=== PATIENT | female | born 1970 | race Caucasian/White ===

== ENCOUNTER 2016-09-07 04:45 | Observation (INO) | payer OTHER ==
[2016-08-28 10:46] LABS: BASOPHILS 0.6 %; BASOPHILS ABSOLUTE 0.04 10/3/uL (0.0-0.16); EOSINOPHILS 5.2 %; EOSINOPHILS ABSOLUTE 0.33 10/3/uL (0.0-0.53); HEMATOCRIT 39.6 % (36.0-48.0); HEMOGLOBIN 12.4 g/dL (12.0-16.0); IMMATURE GRANULOCYTES 0.5 %; IMMATURE GRANULOCYTES ABSOLUTE 0.03 10/3/uL (0.0-0.11); LYMPHOCYTES 20.4 %; MEAN PLATELET VOLUME 10.1 fL (9.2-13.0); MONOCYTES 8.8 %; MONOCYTES ABSOLUTE 0.56 10/3/uL (0.21-1.20); NEUTROPHILS 64.5 %; NEUTROPHILS ABSOLUTE 4.11 10/3/uL (2.02-8.40); RED CELL COUNT 4.23 10/6/uL (4.0-5.6); WHITE BLOOD CELLS 6.4 10/3/uL (4.5-10.5)
[2016-08-28 10:51] LABS: MANUAL DIFF NO %; MEAN CORPUS HGB CONC 31.3 g/dL (32.0-36.0); MEAN CORPUSCULAR HEMOGLOB 29.3 pg (26.0-34.0); MEAN CORPUSCULAR VOLUME 93.6 fL (80-100); PLATELET COUNT 293 10/3/uL (150-400); RBC DISTRIBUTION WIDTH 16.3 % (12.0-16.0)
[2016-08-28 10:52] LABS: PARTIAL THROMBO TIME 26.9 SEC (22.5-37.2); PROTIME (NOT ORD) 12.8 SEC (12.0-14.5)
[2016-08-28 10:56] LABS: ALBUMIN 3.1 G/DL (3.5-5.0); ALKALINE PHOSPHATASE 134 U/L (45-117); BUN (BLOOD UREA NITROGEN) 12 MG/DL (6-23); CALCIUM, SERUM 8.4 MG/DL (8.5-10.4); CHLORIDE, SERUM 110 MMOL/L (96-112); CO2 (CARBON DIOXIDE) 28 MMOL/L (24-34); CREATININE 0.87 MG/DL (0.55-1.02); GFR AFRICAN AMERICAN 93 ML/MIN (>=60); GFR NON AFRICAN AMERICAN 80 ML/MIN (>=60); GLOBULIN 3.2 G/DL (2.5-4.1); GLUCOSE, SERUM 81 MG/DL (60-99); POTASSIUM, SERUM 4.1 MMOL/L (3.5-5.3); SGOT(AST) 21 U/L (5-40); SGPT(ALT) 15 U/L (5-65); SODIUM, SERUM 144 MMOL/L (135-148); TOTAL BILIRUBIN 0.1 MG/DL (0-1.2); TOTAL PROTEIN 6.3 G/DL (6.0-8.5)
[2016-08-28 11:01] LABS: ASCORBIC ACID (UR NOT ORDER) NEG (NEG); BILIRUBIN, URINE NEGATIVE (NEG); KETONE, URINE NEGATIVE (NEG); LEUKOCYTE ESTERASE(NOT OR SMALL (NEG); WBC (NOT ORDERED) (RFLEX) 16 (0-5)
--- NOTE | ~2016-09-07 | OP ---
Record Of Operation [facility] [address] [place]. [address] NAME: JASPER WEBER : 70 STATUS : ADM IN PAT#: [id number] AGE: 46 ADM/REG DATE : 09/07/16 MR#: [id number] REPORT SERV DATE: 09/07/16 DICTATED BY: KEYON FERNANDEZ DATE: 09/07/16 REPORT STATUS : Draft TRANSCRIBED BY: MODL DATE: 09/07/16 DATE OF PROCEDURE: 09/07/2016 PREOPERATIVE DIAGNOSIS: Left early shoulder osteoarthritis. POSTOPERATIVE DIAGNOSIS: Left early shoulder osteoarthritis. PROCEDURE: Left total shoulder arthroplasty. SURGEON: Keyon Fernandez M.D. COMPLICATIONS: None. ANESTHESIA: General endotracheal with regional block. IMPLANTS: [employer] press-fit stem and hybrid glenoid. INDICATIONS: This 46-year-old female is well known to me. She had arthroscopic procedure for soft tissue pain generators, which revealed a full-thickness chondral loss of the humeral head, arthroscopically worse than radiographically. The patient was in severe pain and had concomitant severe depression and was extremely intolerant of her pain. We discussed resurfacing versus shoulder arthroplasty. She wished to proceed with operative intervention after discussion of above. We discussed of course need for further surgery, infection, instability, cuff tear, hardware problems, or lack of pain relief. She verbalized understanding and wished to proceed. DESCRIPTION OF PROCEDURE: The patient was induced in supine position. She was taken to the beach-chair position with care to maintain the cervical lordosis. A time-out protocol was enforced. Ancef was administered. The deltopectoral approach was utilized. The cephalic vein was taken laterally. We carefully dissected the scar in the subdeltoid region via strap muscles, and a plane between the straps and the subscap was delineated. We released the subscap with a lesser tuberosity osteotomy. 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 We released the capsule carefully in the latissimus. We dislocated the shoulder. There was full-thickness chondral loss of the humeral side. We sized that for a 44, resurfacing it first for bone-sparing technique and then did provisional reaming. We then turned attention to the glenoid and placed a Fukuda. We protected the axillary nerve with a carbon fiber skid and released the inferior capsule. 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 I did not want to leave a glenoid in this individual for a pain generator, and I felt it best to resurface it with polyethylene, removed the labrum and made several attempts to go ahead with a glenoid leaving the head on, but I felt the trajectory was not adequate, so we went ahead and converted to a total shoulder. We made a freehand neck cut and did sequential broaching up to an 11 stem and with the head excised, we had excellent access to the glenoid. We then drilled the pegs and autografted the central cage and impacted that into position. We then turned attention back to the humerus. We put FiberWire around the real stem and impacted Record Of Operation [address] [place]. [address] NAME: JASPER WEBER : 70 STATUS : ADM IN PAT#: [id number] AGE: 46 ADM/REG DATE : 09/07/16 MR#: [id number] REPORT SERV DATE: 09/07/16 DICTATED BY: KEYON FERNANDEZ. DATE: 09/07/16 REPORT STATUS : Draft TRANSCRIBED BY: MODL DATE: 09/07/16 that into position, and the humeral head locking plate was set and a 44 head was selected with posterior eccentricity. Good anatomic reproduction was achieved. We then reduced the shoulder and irrigated with pulsatile lavage and tranexamic acid. The subscap was repaired with Jack-Tuan sutures and then oversewn with closing the interval. The TXA was placed. We closed the deltopectoral interval with a running monofilament. The wound was then closed in layers. The patient tolerated the procedure well and was taken to PACU in stable condition. POSTOPERATIVE PLAN: Elbow range of motion, pendulums only. Total shoulder protocol. BSS/MODL Keyon Fernandez M.D. / [id number] CC: Keyon Fernandez M.D.
--- NOTE | ~2016-09-07 | OP ---
Record Of Operation [facility] [address] [place] [address] NAME: JASPER WEBER : 70 STATUS : ADM IN PAT#: [id number] AGE: 46 ADM/REG DATE : 09/07/16 MR#: [id number] REPORT SERV DATE: 09/07/16 DICTATED BY: KEYON FERNANDEZ DATE: 09/07/16 REPORT STATUS : Draft TRANSCRIBED BY: MODL DATE: 09/07/16 DATE OF PROCEDURE: 09/07/2016 PREOPERATIVE DIAGNOSIS: Left early shoulder osteoarthritis. POSTOPERATIVE DIAGNOSIS: Left early shoulder osteoarthritis. PROCEDURE: Left total shoulder arthroplasty. SURGEON: Keyon Fernandez M.D. COMPLICATIONS: None. ANESTHESIA: General endotracheal with regional block. IMPLANTS: [employer] press-fit stem and hybrid glenoid. ESTIMATED BLOOD LOSS: 150. INDICATIONS: This is a 46-year-old female, who underwent arthroscopic treatment of her shoulder for soft tissue pathology. She still had severe pain. She had arthroscopically diagnosed humeral arthritis, which was greater than visualized on DICTATION ENDS HERE BSS/KAHLILL Keyon Fernandez M.D. / [id number] CC: Keyon Fernandez M.D.
[~2016-09-07 04:45] MED LIST: ATV1 PO; GEODON80 PO; LAMICTAL200 MG PO; NEUR400 PO; OXYCOD PO; PARNATE10 MG PO; PROAIR HFA INH; PROTONIX PO; REST15 PO; SPIRIVA INH; TOPAMAX200 MG PO
[2016-09-08 05:40] LABS: HEMATOCRIT 30.1 % (36.0-48.0); HEMOGLOBIN 9.5 g/dL (12.0-16.0)
[2016-09-08 05:58] LABS: CALCIUM, SERUM 7.7 MG/DL (8.5-10.4); CHLORIDE, SERUM 111 MMOL/L (96-112); CO2 (CARBON DIOXIDE) 26 MMOL/L (24-34); CREATININE 0.74 MG/DL (0.55-1.02); GFR AFRICAN AMERICAN 113 ML/MIN (>=60); GFR NON AFRICAN AMERICAN 97 ML/MIN (>=60); GLUCOSE, SERUM 81 MG/DL (60-99); POTASSIUM, SERUM 3.8 MMOL/L (3.5-5.3); SODIUM, SERUM 143 MMOL/L (135-148)
[2016-09-08 05:59] LABS: BUN (BLOOD UREA NITROGEN) 6 MG/DL (6-23)
[2016-09-08] MEDS ORDERED: PR25 PO (11:35)
[2016-09-08] MEDS ORDERED: PCET PO (11:35)
[2016-09-08] MEDS ORDERED: ASA5GR PO (11:35)
== END 2016-09-08 12:18 | disposition home or self-care (01) ==
LOC: SDC/OF 04:45 → PACU 10:56 → 3SO 11:34
PROVIDERS: Orthopaedic Surgery Sports Medicine
PROC: 0RQM0ZZ Repair Left Elbow Joint, Open Approach (ICD-10-PCS; principal; 2016-09-07 07:15)
DX: M19.012 Primary osteoarthritis, left shoulder (principal); F17.210 Nicotine dependence, cigarettes, uncomplicated; J44.9 Chronic obstructive pulmonary disease, unspecified; G43.909 Migraine, unspecified, not intractable, without status migrainosus; M19.90 Unspecified osteoarthritis, unspecified site; F41.9 Anxiety disorder, unspecified; F32.9 Major depressive disorder, single episode, unspecified; Z98.890 Other specified postprocedural states; Z88.0 Allergy status to penicillin; Z88.5 Allergy status to narcotic agent; Z88.8 Allergy status to other drugs, medicaments and biological substances; Z79.891 Long term (current) use of opiate analgesic; Z79.899 Other long term (current) drug therapy; Z90.49 Acquired absence of other specified parts of digestive tract; Z90.710 Acquired absence of both cervix and uterus; Z87.442 Personal history of urinary calculi
CPT/HCPCS: 36415; 73030-LT; 80048; 80053; 81001; 85014; 85018; 85025; 85610; 85730; 86850; 86900; 86901; 87077; 87086; 87186; 87641; 88305; 88311; 94640; 96372; 96374; 96375; 96376; 97161-GP; A9270-GY; C1713; G0378; J0690; J2250; J2370; J2405; J2710; J2795; J3010

== ENCOUNTER 2017-03-24 12:23 | Emergency (ER) | payer MEDICARE, OTHER ==
[~2017-03-24 12:23] MED LIST changes: +ASA5GR PO; +PCET PO; +PR25 PO
== END 2017-03-24 14:05 | disposition home or self-care (01) ==
LOC: ER 12:23
DX: S73.102A Unspecified sprain of left hip, initial encounter (principal); F17.200 Nicotine dependence, unspecified, uncomplicated; K21.9 Gastro-esophageal reflux disease without esophagitis; F32.9 Major depressive disorder, single episode, unspecified; Z88.0 Allergy status to penicillin; Z88.2 Allergy status to sulfonamides; Z88.5 Allergy status to narcotic agent; Z88.6 Allergy status to analgesic agent; Z88.8 Allergy status to other drugs, medicaments and biological substances; Z91.09 Other allergy status, other than to drugs and biological substances; Z79.82 Long term (current) use of aspirin; Z79.899 Other long term (current) drug therapy; W01.0XXA Fall on same level from slipping, tripping and stumbling without subsequent striking against object, initial encounter
CPT/HCPCS: 73502-LT; 96372; 99284; J1885